=== PATIENT | male | born 1995 | race Two or more races ===

== ENCOUNTER → 2023-07-23 | Outpatient (CLI) | payer OTHER ==
--- NOTE | 2023-07-23 21:04 | XRAY Report ---
PROCEDURE: Finger(s) LT INDICATIONS: CRUSHING INJURY OF LEFT THUMB TECHNIQUE: AP hand, 2 views of the left thumb acquired. COMPARISON: None. FINDINGS: Bones: No fractures or dislocations. No suspicious bony lesions. Soft tissues: No suspicious soft tissue calcifications or masses. IMPRESSION: No acute bony abnormality. Reviewed by: Charlie Taylor MD on 07/23/2023 9:03 PM PST Approved by: Charlie Taylor MD on 07/23/2023 9:03 PM [facility] Station ID: [id number]
== END ==
LOC: DI.N 08:05
PROVIDERS: ATTEND Physician Assistant
DX: S67.02XA Crushing injury of left thumb, initial encounter (principal)